=== PATIENT | male | born 1985 | race Hispanic/Latino ===

== ENCOUNTER 2018-07-13 16:58 | Emergency (ER) | payer OTHER ==
[2018-07-13] MEDS ORDERED: DICYCLOMINE HCL 10 MG/ML 2ML AMP IM ONE (17:36)
[2018-07-13] MEDS ORDERED: MAGNESIUM CITRATE 296 ML SOLUTION ONE (18:19)
== END 2018-07-13 18:25 | disposition home or self-care (01) ==
LOC: EDH 16:58
DX: K59.00 Constipation, unspecified (principal); Z87.891 Personal history of nicotine dependence
CPT/HCPCS: 96372; 99283; J0500

== ENCOUNTER 2018-08-04 18:42 | Emergency (ER) | payer OTHER | END 2018-08-04 19:57 | disposition home or self-care (01) | LOC: EDH 18:42 | DX: H10.9 Unspecified conjunctivitis (principal); H11.421 Conjunctival edema, right eye ==

== ENCOUNTER 2019-03-07 19:23 | Emergency (ER) | payer BC, OTHER ==
[2019-03-07 20:13] LABS: APPEARANCE,URINE Clear (CLEAR); BILIRUBIN,URINE Negative (NEGATIVE); COLOR,URINE Yellow (YELLOW); GLUCOSE, URINE (UA) Negative (NEGATIVE); KETONES,URINE Negative (NEGATIVE); LEUKOCYTE ESTERASE ,URINE Small (NEGATIVE); NITRATE,URINE Negative (NEGATIVE); OCCULT BLOOD,URINE Moderate (NEGATIVE); PH,URINE 5.5 (5.0-8.0); PROTEIN,URINE Negative (NEGATIVE); UROBILINOGEN,URINE 0.2 mg/dL (0.2-1.0)
[2019-03-07 20:19] LABS: BACTERIA,URINE Rare /HPF (None Seen)
[2019-03-07 20:20] LABS: MUCUS,URINE Few LPF (None Seen); SQUAMOUS EPITHELIAL CELL,UR Rare /HPF (0-2)
[2019-03-07] MEDS ORDERED: LIDOCAINE HCL-MPF 1% 2ML VIAL ONE (20:50)
[2019-03-07] MEDS ORDERED: CEFTRIAXONE SODIUM 1 GM ONE (20:50)
== END 2019-03-07 21:29 | disposition home or self-care (01) ==
LOC: EDH 19:23
DX: N39.0 Urinary tract infection, site not specified (principal); R31.9 Hematuria, unspecified; Z72.0 Tobacco use
CPT/HCPCS: 81001; 87088; 99284; J0696; J3490